=== PATIENT | female | born 1980 | race Asian ===

== ENCOUNTER 2019-05-09 16:07 | Emergency (ER) | payer OTHER ==
[~2019-05-09] VITALS: Ht 167.6 cm; Wt 68.5 kg
[2019-05-09 16:30] VITALS: Ht 167.6 cm; Wt 68.5 kg
[2019-05-09 17:02] LABS: BASOPHIL % 0.4 % (0-2); PLATELET COUNT 198 x10^3mcL (130-400); RED CELL DISTRIBUTION WIDTH 12.9 % (11.5-14.5)
[2019-05-09 19:14] VITALS: BP 109/74
== END 2019-05-09 19:14 | disposition home or self-care (01) ==
LOC: ED 16:07
PROVIDERS: Emergency Medicine
DX: N94.6 Dysmenorrhea, unspecified (principal)
CPT/HCPCS: 36415